=== PATIENT | female | born 1985 | race Asian ===

== ENCOUNTER → 2016-11-30 | Emergency (ER) | payer OTHER ==
[~2016-11-30] MED LIST: ACETAMINOPHEN 325 MG TABLET (FP) ONE; ACETAMINOPHEN 325 MG TABLET (FP) PO ONE
--- NOTE | 2016-11-30 19:48 | PDOC ---
History of Present Illness - General Chief Complaint: Vaginal Bleeding Stated Complaint: 6WKS/VAGINAL BLEEDING (EMPLOYEE) History Source: Patient - History of Present Illness Travel History: No Initial Comments: 11/30/167hrs: Blood work surekha and sent to lab by me 1954hrs. 2034hrs: Orders states blood work is "uncollected", called lab at [id number]/ spoke to Ethel says blood work is in the bin and will be logged now. 11/30/16 22:44 LMP 10/16/2016 31-year-old female presents to the emergency department complaining of vaginal bleed 4 days. Pt says she had heavy vaginal bleed for 2 days which tapered off to spotting this afternoon. Pt denies any boyle, dizziness, lightheadedness, neck/ back pain, cp, sob, urinary freq/hesitancy,urgency, flank pain. Pt was seen at her OB/DR. Jessica Taylor x3d ago and was informed of a possibel missed AB. Past History - Past Medical History Allergies/Adverse Reactions: Allergies Allergy/AdvReac Type Severity Reaction Status Date / Time No Known Allergies Allergy Verified 11/30/16 19:47 Home Medications: Ambulatory Orders Nitrofurantoin Monohyd/M-Cryst [Macrobid -] 100 mg PO BID #14 capsule 11/28/15 Phenazopyridine HCl [Pyridium] 200 mg PO TID #6 tablet 11/28/15 - Psycho/Social/Smoking Cessation Hx Suicidal Ideation: No Smoking History: Never smoked Have you smoked in the past 12 months: No Number of Cigarettes Smoked Daily: 0 Hx Alcohol Use: No Drug/Substance Use Hx: No Abd/GI Specific PMHX - Complaint Specific PMHX Colitis: No Diverticulitis: No Gall Bladder Disease: No GERD: No Hepatitis: No Irritable Bowel Synd (IBS): No Pancreatitis: No GI Ulcer Disease: No Review of Systems - Review of Systems Able to Perform ROS?: Yes Comments:: 11/30/16 20:37 CONSTITUTIONAL: Absent: fever, chills, diaphoresis, generalized weakness, malaise, loss of appetite HEENT: Absent: rhinorrhea, nasal congestion, throat pain, throat swelling, difficulty swallowing, mouth swelling, ear pain, eye pain, visual Changes CARDIOVASCULAR: Absent: chest pain, loss of consciousness, palpitations, irregular heart rate, peripheral edema RESPIRATORY: Absent: cough, shortness of breath, dyspnea with exertion, orthopnea, wheezing, stridor, hemoptysis GASTROINTESTINAL: Absent: abdominal pain, abdominal distension, nausea, vomiting, diarrhea, constipation, melena, hematochezia GENITOURINARY: Absent: dysuria, frequency, urgency, hesitancy, hematuria, flank pain, genital pain MUSCULOSKELETAL: Absent: myalgia, arthralgia, joint swelling SKIN: Absent: rash, itching, pallor HEMATOLOGIC/IMMUNOLOGIC: Absent: easy bleeding, easy bruising, lymphadenopathy, frequent infections ENDOCRINE: Absent: unexplained weight gain, unexplained weight loss, heat intolerance, cold intolerance NEUROLOGIC: Absent: headache, focal weakness or paresthesias, dizziness, unsteady gait, seizure, mental status changes, bladder or bowel incontinence PSYCHIATRIC: Absent: anxiety, depression, suicidal or homicidal ideation, hallucinations. Is the patient limited Albanian proficient: No *Physical Exam - Physical Exam Comments: 11/30/16 20:37 GENERAL: Well developed, well nourished. Awake and alert. No acute distress. HEENT: Normocephalic, atraumatic. PERRLA, EOMI. No conjunctival pallor. Sclera are non- icteric. Moist mucous membranes. Oropharynx is clear. NECK: Supple. Full ROM. No JVD. Carotid pulses 2+ and symmetric, without bruits. No thyromegaly. No lymphadenopathy. CARDIOVASCULAR: Regular rate and rhythm. No murmurs, rubs, or gallops. Distal pulses are 2+ and symmetric. PULMONARY: No evidence of respiratory distress. Lungs clear to auscultation bilaterally. No wheezing, rales or rhonchi. ABDOMINAL: Soft. Non-tender. Non-distended. No rebound or guarding. No organomegaly. Normoactive bowel sounds. MUSCULOSKELETAL Normal range of motion at all joints. No bony deformities or tenderness. No CVA tenderness. EXTREMITIES: No cyanosis. No clubbing. No edema. No calf tenderness. SKIN: Warm and dry. Normal capillary refill. No rashes. No jaundice. NEUROLOGICAL: Alert, awake, appropriate. Cranial nerves 2-12 intact. No deficits to light touch and temperature in face, upper extremities and lower extremities. No motor deficits in the in face, upper extremities and lower extremities. Normoreflexic in the upper and lower extremities. Normal speech. Toes are down- going bilaterally. Gait is normal without ataxia. PSYCHIATRIC: Cooperative. Good eye contact. Appropriate mood and affect. ED Treatment Course - LABORATORY CBC & Chemistry Diagram: 11/30/16 19:55 11/30/16 19:55 *DC/Admit/Observation/Transfer Diagnosis at time of Disposition: Missed - Discharge Dispostion Disposition: HOME Condition at time of disposition: Stable Admit: No - Referrals Referrals: Bing Hopson MD [Primary Care Provider] - Zenaida Swanson MD [Staff Physician] - - Patient Instructions Printed Discharge Instructions: Miscarriage Additional Instructions: Increase fluids Rest Pelvic rest Follow up with your cellophane wrapping examiner this week. Return to the Er for severe/persistent/worsening symptoms - Post Discharge Activity Work/School Note: Back to Work
[2016-11-30 19:50] VITALS: BMI 29.2
--- NOTE | 2016-11-30 20:29 | PDOC ---
*Physical Exam - Vital Signs Last Vital Signs Temp Pulse Resp BP Pulse Ox 98.6 F 84 18 117/69 99 11/30/16 19:48 11/30/16 19:48 11/30/16 19:48 11/30/16 19:48 11/30/16 19:48 ED Treatment Course - LABORATORY CBC & Chemistry Diagram: 11/30/16 19:55 11/30/16 19:55 Medical Decision Making - Medical Decision Making 11/30/16 20:29 Pt seen by the Advanced Practice Provider under my direct supervision Ancillary studies reviewed I agree with plan as outlined by the Advanced Practice Provider CHELSEY Chavez *DC/Admit/Observation/Transfer Diagnosis at time of Disposition: Missed - Discharge Dispostion Disposition: HOME Condition at time of disposition: Stable - Referrals Referrals: Zenaida Swanson MD [Staff Physician] - Bing Hopson MD [Primary Care Provider] - - Patient Instructions Printed Discharge Instructions: Miscarriage Additional Instructions: Increase fluids Rest Pelvic rest Follow up with your rn lpn cna this week. Return to the Er for severe/persistent/worsening symptoms - Post Discharge Activity Work/School Note: Back to Work
[2016-11-30 20:50] LABS: EOSINOPHIL 1.5 % (0-4.5); MCH 28.4 pg (25.7-33.7); MCHC 33.2 g/dl (32.0-36.0); MEAN CELL VOLUME 85.7 fl (80-96); MEAN PLT VOLUME 8.1 fl (7.5-11.1); NEUTROPHILS 56.4 % (42.8-82.8); PLATELET COUNT 341 K/MM3 (134-434); RDW 13.6 % (11.6-15.6); WHITE BLOOD COUNT 10.5 K/mm3 (4.0-10.0)
[2016-11-30 20:59] LABS: URINE APPEARANCE SLCLOUDY; URINE BILIRUBIN NEGATIVE (NEGATIVE); URINE COLOR RED; URINE GLUCOSE (UA) NEGATIVE (NEGATIVE); URINE KETONE NEGATIVE (NEGATIVE); URINE LEUK ESTERASE NEGATIVE (NEGATIVE); URINE NITRITE NEGATIVE (NEGATIVE); URINE UROBILINOGEN NEGATIVE E.U./dl (0.2-1.0)
[2016-11-30 21:02] LABS: URINE BLOOD 3+ (NEGATIVE); URINE PROTEIN 2+ (NEGATIVE)
[2016-11-30 21:12] LABS: URINE RBC 6088 /hpf (0-3); URINE WBC 160 /hpf (3-5)
[2016-11-30 21:18] LABS: ALBUMIN 4.1 g/dl (3.4-5.0); ANION GAP 8 (8-16); BILIRUBIN,TOTAL 0.2 mg/dL (0.2-1.0); CO2 25 mmol/L (21-32); COCKROFT - GAULT 81.7275; CREATININE 1.2 mg/dL (0.55-1.02); GLUCOSE,RANDOM 88 mg/dL (74-106); SGOT/AST 14 U/L (15-37); SGPT/ALT 22 U/L (12-78); TOT PROT 7.8 g/dl (6.4-8.2)
[2016-11-30 21:21] LABS: ALK PHOS 57 U/L (45-117)
[2016-11-30 23:09] VITALS: BP 128/92; PULSE 74; TEMP 98
== END | disposition home or self-care (01) ==
LOC: JER 19:42
DX: O02.1 Missed abortion (principal); Z3A.01 Less than 8 weeks gestation of pregnancy
CPT/HCPCS: 36415; 76817-TC; 80053; 81003; 81015; 84702; 85025; 86850; 86900; 86901; 99282-25

== ENCOUNTER 2017-04-22 21:39 | Emergency (ER) | payer OTHER ==
[2017-04-22 21:51] VITALS: BP 110/83; PULSE 114; BMI 30.9
[2017-04-22] MEDS ORDERED: IBUPROFEN 600 MG TABLET (FP) PO ONE ×2 (22:26→22:40)
--- NOTE | 2017-04-22 23:34 | PDOC ---
History of Present Illness <No Hernandez - Last Filed: 04/22/17 23:35> - General History Source: Patient Exam Limitations: No Limitations - History of Present Illness Initial Comments: 04/22/17 23:43 The patient is a 31 year old female presenting with her , with no significant past medical history, who presents to the emergency department with fever, chills, cough, nasal congestion, body aches and headache for the last couple of days. She states that the last time she took Motrin was at 5pm today, roughly 5 hours prior to presentation. She describes her cough as dry in nature. She reports that she has not received the flu shot this year. The patient currently works in the hospital. The patient denies chest pain, shortness of breath, and dizziness. Denies nausea , vomit, diarrhea and constipation. Denies dysuria, frequency, urgency and hematuria. LMP: 03/24/2017 Allergies: None Past surgical history: None reported Social history: No alcohol, tobacco or drug use reported <Jorge Carrizales - Last Filed: 04/22/17 23:45> - General Chief Complaint: SIRS, Suspected/Possible Stated Complaint: PAIN Time Seen by Provider: 04/22/17 22:18 Past History - Suicide/Smoking/Psychosocial Hx Smoking History: Never smoked Have you smoked in the past 12 months: No Number of Cigarettes Smoked Daily: 0 Information on smoking cessation initiated: No Hx Alcohol Use: No Drug/Substance Use Hx: No Substance Use Type: None <No Hernandez - Last Filed: 04/22/17 23:35> <Jorge Carrizales - Last Filed: 04/22/17 23:45> - Past Medical History Allergies/Adverse Reactions: Allergies Allergy/AdvReac Type Severity Reaction Status Date / Time No Known Allergies Allergy Verified 11/30/16 19:47 Home Medications: Ambulatory Orders NK [No Known Home Medication] 11/30/16 Review of Systems - Review of Systems Able to Perform ROS?: Yes Comments:: 04/22/17 23:43 GENERAL/CONSTITUTIONAL: (+) Fever, chills, body aches. No weakness. HEAD, EYES, EARS, NOSE AND THROAT: (+) Nasal congestion. No change in vision. No ear pain or discharge. No sore throat.- CARDIOVASCULAR: No chest pain or shortness of breath RESPIRATORY: (+) Cough. No wheezing, or hemoptysis. GASTROINTESTINAL: No nausea, vomiting, diarrhea or constipation. GENITOURINARY: No dysuria, frequency, or change in urination. MUSCULOSKELETAL: No joint or muscle swelling or pain. No neck or back pain. SKIN: No rash NEUROLOGIC: (+) Headache. No vertigo, loss of consciousness, or change in strength/sensation. ENDOCRINE: No increased thirst. No abnormal weight change HEMATOLOGIC/LYMPHATIC: No anemia, easy bleeding, or history of blood clots. ALLERGIC/IMMUNOLOGIC: No hives or skin allergy. <Jorge Carrizales - Last Filed: 04/22/17 23:45> *Physical Exam - Vital Signs Last Vital Signs Temp Pulse Resp BP Pulse Ox 102.2 F H 114 H 20 110/83 97 04/22/17 21:41 04/22/17 21:41 04/22/17 21:41 04/22/17 21:41 04/22/17 21:41 <No Hernandez - Last Filed: 04/22/17 23:35> - Vital Signs Last Vital Signs Temp Pulse Resp BP Pulse Ox 102.2 F H 114 H 20 110/83 97 04/22/17 21:41 04/22/17 21:41 04/22/17 21:41 04/22/17 21:41 04/22/17 21:41 - Physical Exam Comments: 04/22/17 23:43 GENERAL: Awake, alert, and fully oriented, in no acute distress HEAD: No signs of trauma, normocephalic, atraumatic EYES: PERRLA, EOMI, sclera anicteric, conjunctiva clear ENT: Auricles normal inspection, hearing grossly normal, nares patent, oropharynx clear without exudates. Moist mucosa NECK: Normal ROM, supple, no lymphadenopathy, JVD, or masses LUNGS: No distress, speaks full sentences, clear to auscultation bilaterally HEART: (+) Tachycardia. Normal S1 and S2, no murmurs, rubs or gallops, peripheral pulses normal and equal bilaterally. ABDOMEN: Soft, nontender, normoactive bowel sounds. No guarding, no rebound. No masses EXTREMITIES : Normal inspection, Normal range of motion, no edema. No clubbing or cyanosis. NEUROLOGICAL: Cranial nerves II through XII grossly intact. Normal speech, normal gait, no focal sensorimotor deficits SKIN: Warm, Dry, normal turgor, no rashes or lesions noted. <Jorge Carrizales - Last Filed: 04/22/17 23:45> ED Treatment Course - ADDITIONAL ORDERS Additional order review: 04/22/17 22:30 Influenza Types A,B Antigen (MARKOS) - Final Nasopharyngeal Swab - Final - Medications Given in the ED: ED Medications Discontinued Medications Generic Name Dose Route Start Last Admin Trade Name Freq PRN Reason Stop Dose Admin Ibuprofen 600 mg 04/22/17 22:26 04/22/17 22:43 Motrin - PO 04/22/17 22:27 600 mg ONCE ONE Administration <No Hernandez - Last Filed: 04/22/17 23:35> - ADDITIONAL ORDERS Additional order review: 04/22/17 22:30 Influenza Types A,B Antigen (MARKOS) - Final Nasopharyngeal Swab - Final - Medications Given in the ED: ED Medications Discontinued Medications Generic Name Dose Route Start Last Admin Trade Name Freq PRN Reason Stop Dose Admin Ibuprofen 600 mg 04/22/17 22:26 04/22/17 22:43 Motrin - PO 04/22/17 22:27 600 mg ONCE ONE Administration <Jorge Carrizales - Last Filed: 04/22/17 23:45> *DC/Admit/Observation/Transfer <No Hernandez - Last Filed: 04/22/17 23:35> - Attestations Scribe Attestion: 04/22/17 23:45 Documentation prepared by Jorge Carrizales, acting as biomedical equipment specialist for No Hernandez MD <Jorge Carrizales - Last Filed: 04/22/17 23:45> Diagnosis at time of Disposition: Cough, Body aches Fever Qualifiers: Fever type: unspecified Qualified Code(s): R50.9 - Fever, unspecified - Discharge Dispostion Condition at time of disposition: Stable - Referrals Referrals: Bing Hopson MD [Primary Care Provider] - - Patient Instructions Printed Discharge Instructions: DI for Fever (Symptom) -- Adult, DI for Viral Syndrome, DI for Nasal Congestion Additional Instructions: -please take tylenol as needed for fever ,headache and body aches -try to stay hydrated,drink plenty of fluid -You may want to use OTC nasal decongestant -return if you develop any difficulty breathing, neck pain or headaches associated with vomiting
[2017-04-22 23:46] VITALS: TEMP 100.6
== END 2017-04-22 23:47 | disposition home or self-care (01) ==
LOC: JER 21:39
DX: B34.9 Viral infection, unspecified (principal)
CPT/HCPCS: 87804; 99283-25

== ENCOUNTER 2017-10-10 05:13 | Day surgery (SDC) | payer OTHER ==
[2017-10-09 09:03] VITALS: BMI 28.7
[2017-10-10] MEDS ORDERED: ACETAMINOPHEN 325 MG TABLET (FP) PO PRN (06:53)
[2017-10-10] MEDS ORDERED: IBUPROFEN 400 MG TABLET (FP) PO PRN (06:53)
--- NOTE | 2017-10-10 06:53 | HP ---
History & Physical Update - History History: No Change - Physical Physical: No Change - Assessment Assessment: No Change - Plan Plan: No Change (no change in my HP from 10/09/17)
[2017-10-10] MEDS ORDERED: PROPOFOL 20 ML ONE ×2 (12:05→12:21)
[2017-10-10] MEDS ORDERED: SUCCINYLCHOLINE CHLORIDE 200 MG/10 ML VIAL ONE (12:05)
[2017-10-10] MEDS ORDERED: MIDAZOLAM HCL 2 MG/2 ML SINGLE DOSE VIAL ONE (12:06)
[2017-10-10] MEDS ORDERED: DEXAMETHASONE SOD PHOSPHATE 4 MG/1 ML VIAL ONE (12:21)
[2017-10-10] MEDS ORDERED: KETOROLAC TROMETHAMINE 30 MG/1 ML VIAL ONE (12:21)
[2017-10-10] MEDS ORDERED: LIDOCAINE HCL/PF 2% SDV 5ML VIAL ONE (12:21)
[2017-10-10] MEDS ORDERED: SODIUM CHLORIDE 0.9% P/F 10 ML VIAL IJ ONE (12:24)
[2017-10-10] MEDS ORDERED: ceFAZolin SODIUM 1 GM VIAL ONE (12:24)
[2017-10-10] MEDS ORDERED: ONDANSETRON 4 MG/2 ML VIAL IVPUSH PRN (13:18)
[2017-10-10] MEDS ORDERED: oxyCODONE HCL 5 MG TABLET PO PRN ×2 (13:18)
--- NOTE | 2017-10-10 13:21 | OP ---
DATE OF OPERATION: 10/10/2017 PREOPERATIVE DIAGNOSIS: Endometrial polyps, submucosal myoma. OPERATION: Hysteroscopic myomectomy and dilation and curettage. POSTOPERATIVE DIAGNOSIS: Endometrial polyps, submucosal myoma. SURGEON: Zenaida Swanson MD ANESTHESIA: General. FINDINGS: Endometrial polyps and submucosal myomas seen and intramural myoma. DESCRIPTION OF PROCEDURE: The patient was taken to the operating room and placed in dorsal lithotomy position, prepped and draped in the usual sterile fashion. A time-out was performed in accordance with hospital regulation. Speculum was placed in the vagina. Anterior lip of the cervix was grasped with a single-tooth tenaculum. The cervix was then dilated to accommodate the operative hysteroscope. Operative hysteroscope was inserted, and numerous polyps and submucosal myomas seen. Cautery and cutting of the polyps and myoma was then done. Suction dilation and curettage was then performed. Contents was submitted to Pathology. Hemostasis was achieved. All instruments were removed. The patient tolerated the procedure well and was taken to the recovery room in stable condition. EBL 20 mL. ZENAIDA SWANSON M.D. [id number]
[2017-10-10] MEDS ORDERED: LACTATED RINGERS SOLUTION 1,000 ML IV SCH (13:30)
[2017-10-10] MEDS ORDERED: ONDANSETRON 4 MG/2 ML VIAL ONE (15:02)
[2017-10-10 17:34] VITALS: BP 113/68; PULSE 90; TEMP 98
--- NOTE | 2017-10-15 17:33 | PATH ---
Surgical Pathology Report Patient Name: JOHNNY MUNGUIA [facility]. Rec. #: [id number] /Age/Gender: 1985 (Age: 32) / F Account: [id number] Location: [facility] SURGICAL Taken: 10/09/2017 Received: 10/14/2017 Reported: 10/15/2017 Physicians: Zenaida Swanson M.D. Specimen(s) Received SUBMUCOSAL FIBROID Clinical History Submucosal myoma/polyp Final Diagnosis SUBMUCOSAL FIBROID, HYSTEROSCOPY, MYOMECTOMY, SUCTION AND DILATION CURETTAGE: FRAGMENTS OF SMOOTH MUSCLE CONSISTENT WITH SUBMUCOSAL LEIOMYOMA AND POLYPOID FRAGMENTS OF EARLY SECRETORY ENDOMETRIUM. Electronically Signed Jayde Bangura M.D. Gross Description Received in formalin labeled "submucosal fibroid," is a 4 g, 3.8 x 2.5 x 0.4 cm aggregate of price soft tissue fragments. The formalin is filtered and the specimen is entirely submitted in 3 cassettes. /10/14/2017 saudi10/14/2017
== END 2017-10-10 17:15 | disposition home or self-care (01) ==
LOC: JASU-SURG 05:13
PROVIDERS: ATTEND Obstetrics & Gynecology
PROC: 0UB98ZZ Excision of Uterus, Via Natural or Artificial Opening Endoscopic (ICD-10-PCS; principal; 2017-10-10 11:30)
PROC: 0UDB8ZX Extraction of Endometrium, Via Natural or Artificial Opening Endoscopic, Diagnostic (ICD-10-PCS; 2017-10-10 11:30)
DX: D25.0 Submucous leiomyoma of uterus (principal); N84.0 Polyp of corpus uteri
CPT/HCPCS: 88305-TC; 94760

== ENCOUNTER 2018-01-02 23:09 | Emergency (ER) | payer OTHER ==
[2018-01-02 23:12] VITALS: BP 129/72; PULSE 84; TEMP 97.8; BMI 30.9
--- NOTE | 2018-01-02 23:49 | PDOC ---
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 She was stuck with an insulin needle after injecting her patient with insulin. She washed her hands with soap and water immediately afterwards, and her pain to the area is very mild. Serology is pending for the source patient, and OILER BANDER No Choi is in the process of getting HIV testing consent from the source patient. She denies any personal h/o HIV or hepatitis or any additional chronic illness. She has never had similar work exposures. She has otherwise been feeling very well lately and denies any symptoms of illness. She expresses that she prefers to take whatever post-exposure prophylaxis is available and is willing to handle the side effects. <Amarilis Rizo - Last Filed: 01/03/18 02:04> <Jorge Galeana - Last Filed: 01/03/18 05:13> - General Chief Complaint: Blood/Body Fluid Exposure SJR Stated Complaint: STUCK BY NEEDLE Time Seen by Provider: 01/02/18 23:25 Past History - Past Medical History COPD: No Hypercholesterolemia: Yes (no med) - Suicide/Smoking/Psychosocial Hx Smoking History: Never smoked Have you smoked in the past 12 months: No Number of Cigarettes Smoked Daily: 0 Hx Alcohol Use: Yes (wine rarely) Drug/Substance Use Hx: No Substance Use Type: None <Amarilis Rizo - Last Filed: 01/03/18 02:04> <Jorge Galeana - Last Filed: 01/03/18 05:13> - Past Medical History Allergies/Adverse Reactions: Allergies Allergy/AdvReac Type Severity Reaction Status Date / Time No Known Allergies Allergy Verified 01/02/18 23:12 Home Medications: Ambulatory Orders NK [No Known Home Medication] 11/30/16 General Medical PMHX - Other General PMHX GERD: No GI Ulcer Disease: No <Amarilis Rizo - Last Filed: 01/03/18 02:04> Review of Systems - Review of Systems Able to Perform ROS?: Yes Constitutional: No: Chills, Fever, Unexplained wgt Loss HEENTM: No: Nose Congestion, Throat Pain Respiratory: No: Cough, Shortness of Breath Cardiac (ROS): No: Chest Pain, Palpitations ABD/GI: No: Constipated, Diarrhea, Nausea, Vomiting : No: Burning, Dysuria Musculoskeletal: No: Back Pain, Neck Pain Integumentary: No: Bruising, Rash Neurological: No: Headache, Numbness, Tingling, Weakness, Dizziness Endocrine: No: Unexplained Weight Gain, Unexplained Weight Loss <Amarilis Rizo - Last Filed: 01/03/18 02:04> *Physical Exam - Vital Signs Last Vital Signs Temp Pulse Resp BP Pulse Ox 97.8 F 84 18 129/72 99 01/02/18 23:10 01/02/18 23:10 01/02/18 23:10 01/02/18 23:10 01/02/18 23:10 - Physical Exam General Appearance: Yes: Nourished, Appropriately Dressed, Other (alert, oriented, well appearing, nontoxic, answering questions appropriately). No: Apparent Distress HEENT: positive: EOMI, Normal Voice, Hearing Grossly Normal. negative: Scleral Icterus (R), Scleral Icterus (L), Nasal Congestion Neck: positive: Trachea midline, Supple. negative: Tender, Rigid Respiratory/Chest: positive: Lungs Clear, Normal Breath Sounds. negative: Respiratory Distress, Crackles, Rhonchi, Stridor, Wheezing Cardiovascular: positive: Regular Rhythm, Regular Rate. negative: Murmur Gastrointestinal/Abdominal: positive: Normal Bowel Sounds, Soft. negative: Tender, Organomegaly, Pulsatile Mass, Guarding Musculoskeletal: positive: Normal Inspection. negative: Decreased Range of Motion, Vertebral Tenderness Extremity: positive: Normal Capillary Refill, Normal Inspection, Normal Range of Motion. negative: Tender, Cyanosis Integumentary: positive: Normal Color, Dry, Warm. negative: Erythema, Rash, Bruising Neurologic: positive: volunteer services director II-XII NML intact, Fully Oriented, Alert, Normal Mood/ Affect, Normal Response, Motor Strength 5/5 <Amarilis Rizo - Last Filed: 01/03/18 02:04> - Vital Signs Last Vital Signs Temp Pulse Resp BP Pulse Ox 97.8 F 84 18 129/72 99 01/02/18 23:10 01/02/18 23:10 01/02/18 23:10 01/02/18 23:10 01/02/18 23:10 <Jorge Galeana - Last Filed: 01/03/18 05:13> Post Exposure - ED Protocol - Exposure Treatment Washing/Decontamination: Soap/Water Source Patient HIV Status:: Unknown Is PEP indicated?: Yes Prophylaxis for HIV discussed?: Yes Prophylaxis given?: Yes Prophylaxis refused?: No Treatment Given:: Truvada (Tenof+Emtricita), Isentress (Raltegravir) Baseline bloods drawn prophylaxis:(use *Exposure-Hosp Emp): Yes Additional Treatment:: HBIG - Referrals Employee Referred to Employee Health:: Yes City Worker referred to Infection Control Dept.: No Other Post Exposure pt. referral to PCP: No <DarriusAmarilis - Last Filed: 01/03/18 02:04> Medical Decision Making - Medical Decision Making 01/03/18 02:20 Needle stick injury technically a high-risk for exposure according to CDC. <DarriusAmarilis - Last Filed: 01/03/18 02:04> *DC/Admit/Observation/Transfer - Discharge Dispostion Decision to Admit order: No <DarriusAmarilis - Last Filed: 01/03/18 02:04> <Jorge Galeana - Last Filed: 01/03/18 05:13> Diagnosis at time of Disposition: Need for post exposure prophylaxis for hepatitis B, Needle stick injury, Work related injury - Discharge Dispostion Condition at time of disposition: Stable - Referrals Referrals: Bing Hopson MD [Primary Care Provider] - - Patient Instructions Printed Discharge Instructions: How to Handle Body Fluid Exposure -- Healthcare Worker Additional Instructions: You were seen in the ER for a needle stick injury at work and for post-exposure prophylaxis and testing. We surekha your blood to check you for HIV and hepatitis, and we gave you doses of post-exposure prophylaxis medications here in the department. We are sending After our assessment, we do not believe you are having a medical emergency at this time, and we believe you are safe to go home. Please follow up Occupational Medicine and with your regular PCP doctor in 1-3 days. Call their clinic as soon as possible, tell them you were seen in the ER, and tell them you need an appointment. If you have any new or worsening symptoms, please come back to the ER at any time (24 hours a day). If you are having severe or life threatening symptoms, or symptoms that make it unsafe to drive or have someone drive you, please call 911. - Post Discharge Activity Forms/Work/School Notes: Back to Work
--- NOTE | 2018-01-02 23:50 | PDOC ---
Attending Attestation - HPI HPI: 01/03/18 00:13 The patient is a 32 year old female, with a significant PMH of hypothyroidism, hyperlipidemia, uterine polyps s/p myomectomy, who presents to the emergency department for evaluation s/p needlestick injury here at [facility] at 10:45 pm. 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 The patient reports washing her finger immediately s/p needle stick injury with soap and water. The patient denies any history of HIV, hepatitis, or other previous work exposures. The patient denies chest pain, shortness of breath, headache and dizziness. Denies fever, chills, nausea, vomit, diarrhea and constipation. Denies dysuria, frequency, urgency and hematuria. Allergies: NKA - Physicial Exam PE: 01/03/18 00:14 GENERAL: (+) Anxious appearing. Well-appearing, well-nourished. HEENT: Normocephalic, atraumatic. PERRL, EOM intact. CARDIOVASCULAR: Normal S1, S2. Regular rate and rhythm. PULMONARY: Clear to auscultation bilaterally. ABDOMEN: Soft, non-distended, non-tender. EXTREMITIES: (+) Left index finger on radial side has small puncture wound. Full ROM. No tenderness to palpation. Normal ROM in all four extremities. No gross deformities. SKIN: Warm, dry. No rash NEUROLOGICAL: No focal neurological deficits. <Moises Morillo - Last Filed: 01/03/18 00:13> - Resident Resident Name: Amarilis Rizo - ED Attending Attestation I have performed the following: I have examined & evaluated the patient, The case was reviewed & discussed with the resident, I agree w/resident's findings & plan, Exceptions are as noted - Medical Decision Making 01/06/18 20:04 Pt treated and released. <Jorge Galeana - Last Filed: 01/06/18 20:04> Attestations - Attestations 01/03/18 00:16 Documentation prepared by Moises Morillo, acting as medical imaging tech for Jorge Galeana DO. <Moises Morillo - Last Filed: 01/03/18 00:13>
[2018-01-02] MEDS ORDERED: EMTRICITABINE 200MG/TENOFOVIR 300MG PO ONE (23:54)
[2018-01-02] MEDS ORDERED: HEPATITIS B IMMUNE GLOBULIN 5 ML VIAL IM ONE (23:54)
[2018-01-02] MEDS ORDERED: RALTEGRAVIR POTASSIUM 400 MG TAB PO ONE (23:54)
[2018-01-03 00:44] LABS: BASO % 1.3 % (0-2.0); EOS % 0.7 % (0-4.5); HEMOGLOBIN 12.2 GM/dL (10.7-15.3); LYMPH % 32.6 % (8-40); MCH 28.7 pg (25.7-33.7); MCHC 33.1 g/dl (32.0-36.0); MEAN CELL VOLUME 86.8 fl (80-96); MEAN PLT VOLUME 7.8 fl (7.5-11.1); NEUT % 62.4 % (42.8-82.8); PLATELET COUNT 357 K/MM3 (134-434); RBC 4.26 M/mm3 (3.60-5.2); RDW 13.8 % (11.6-15.6); WHITE BLOOD COUNT 8.6 K/mm3 (4.0-10.0)
[2018-01-03 01:05] LABS: ALBUMIN 4.2 g/dl (3.4-5.0); ANION GAP 7 (8-16); BILIRUBIN,TOTAL 0.2 mg/dL (0.2-1.0); BLOOD UREA NITROGEN 11 mg/dL (7-18); CALCIUM 9.2 mg/dL (8.5-10.1); CHLORIDE 105 mmol/L (98-107); CHOLESTEROL 233 mg/dL (50-200); CO2 25 mmol/L (21-32); CREATININE 0.7 mg/dL (0.55-1.02); GAMMA GLUTAMYL TRANSPEPTIDASE 16 U/L (5-85); GLUCOSE,RANDOM 99 mg/dL (74-106); LDH 167 U/L (84-246); PHOSPHOROUS 3.8 mg/dL (2.5-4.9); POTASSIUM 4.2 mmol/L (3.5-5.1); SGOT/AST 14 U/L (15-37); SGPT/ALT 28 U/L (12-78); SODIUM 137 mmol/L (136-145); TOT PROT 8.4 g/dl (6.4-8.2); URIC ACID 4.7 mg/dL (2.6-7.2)
[2018-01-03 01:07] LABS: ALK PHOS 47 U/L (45-117); TRIGLYCERIDES 199 mg/dL (35-160)
[2018-01-03] MEDS ORDERED: HIV POST EXPOSURE PROPHYLAXIS KIT PO ONE (05:16)
[2018-01-04 06:11] LABS: HBsAG SCREEN Negative (Negative); HEPATITIS B CORE ANTIBODY Negative (Negative)
== END 2018-01-03 05:17 | disposition home or self-care (01) ==
LOC: JER 23:09
DX: S61.231A Puncture wound without foreign body of left index finger without damage to nail, initial encounter (principal); W46.1XXA Contact with contaminated hypodermic needle, initial encounter; Y93.F9 Activity, other caregiving; Y92.238 Other place in hospital as the place of occurrence of the external cause; Y99.0 Civilian activity done for income or pay
CPT/HCPCS: 36415; 80053; 82465; 82977; 83615; 84100; 84478; 84550; 84703; 85025; 86704; 87340; 87389; 99281-25

== ENCOUNTER 2018-07-20 03:02 | Emergency (ER) | payer OTHER ==
--- NOTE | 2018-07-20 03:14 | PDOC ---
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 She stuck her L thenar eminence. No active bleeding at this time. Pt was able to wash out the wound with soap and water. Does not remember last tetanus shot. Source pt currently in the ED and will given HIV/.hep samples. Past History - Travel Traveled outside of the country in the last 30 days: No Close contact w/someone who was outside of country & ill: No - Past Medical History Allergies/Adverse Reactions: Allergies Allergy/AdvReac Type Severity Reaction Status Date / Time No Known Allergies Allergy Verified 07/20/18 03:16 Home Medications: Ambulatory Orders NK [No Known Home Medication] 11/30/16 COPD: No Hypercholesterolemia: Yes (no med) - Suicide/Smoking/Psychosocial Hx Smoking History: Never smoked Have you smoked in the past 12 months: No Number of Cigarettes Smoked Daily: 0 Hx Alcohol Use: Yes (wine rarely) Drug/Substance Use Hx: No Substance Use Type: None Review of Systems - Review of Systems Able to Perform ROS?: Yes Comments:: 07/20/18 06:04 CONSTITUTIONAL: Absent: fever, chills, diaphoresis, generalized weakness, malaise, loss of appetite HEENT: Absent: rhinorrhea, nasal congestion, throat pain, throat swelling, difficulty swallowing, mouth swelling, ear pain, eye pain, visual Changes SKIN: Absent: rash, itching, pallor HEMATOLOGIC/IMMUNOLOGIC: Present: needle stick Absent: easy bleeding, easy bruising, lymphadenopathy, frequent infections ENDOCRINE: Absent: unexplained weight gain, unexplained weight loss, heat intolerance, cold intolerance NEUROLOGIC: Absent: headache, focal weakness or paresthesias, dizziness, unsteady gait, seizure, mental status changes, bladder or bowel incontinence PSYCHIATRIC: Absent: anxiety, depression, suicidal or homicidal ideation, hallucinations. Is the patient limited [place] proficient: No *Physical Exam - Physical Exam Comments: 07/20/18 06:04 GENERAL: The patient is awake, alert, and fully oriented, in no acute distress. HEAD: Normal with no signs of trauma. EYES: Pupils equal, round and reactive to light, extraocular movements intact, sclera anicteric, conjunctiva clear. EXTREMITIES: Normal range of motion, no edema. NEUROLOGICAL: Normal speech, normal gait. PSYCH: Normal mood, normal affect. SKIN: No needle efe present on the L thenar eminence. No active bleeding. Warm , Dry, normal turgor, no rashes or lesions noted. 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 -Pt washed L palm where stick occurred. No bleeding present at this time -Pt to follow up with employee [facility] -[place] home -I discussed the physical exam findings, ancillary test results and final diagnoses with the patient. I answered all of the patient's questions. The patient was satisfied with the care received and felt comfortable with the discharge plan and treatment plan. The Patient agrees to follow up with the primary care physician/specialist within 24-72 hours. Return precautions were given. *DC/Admit/Observation/Transfer Diagnosis at time of Disposition: Needle stick injury, Work related injury - Discharge Dispostion Disposition: HOME Condition at time of disposition: Stable Decision to Admit order: No - Referrals - Patient Instructions Printed Discharge Instructions: How to Handle Body Fluid Exposure -- Healthcare Worker Additional Instructions: You had a needle stick today Your tetanus shot was updated Please follow up with [facility] for further work up 1. As discussed, a screening test for the HIV virus was performed today. Your HIV test is Negative (normal). 2. As discussed, if you engaged in high risk-behavior in the three (3) months prior to this test, you could still potentially be at risk and you will need to be re-tested. 3. As discussed, avoid any high risk behavior (such as unprotected sex or needle-sharing) in the future to minimize the chances of dixie HIV. Return to the ED for any new or worsening symptoms - Post Discharge Activity Forms/Work/School Notes: Back to Work
[2018-07-20] MEDS ORDERED: DIPHTH,PERTUSS(ACELL),TET 0.5 ML DISP.SYRIN IM ONE ×2 (03:16→03:36)
[2018-07-20 03:18] VITALS: BP 117/76; PULSE 82; TEMP 97.9; BMI 26.5
[2018-07-20 03:56] LABS: EOS % 2.3 % (0-4.5); HEMATOCRIT 35.3 % (32.4-45.2); HEMOGLOBIN 12.3 GM/dL (10.7-15.3); LYMPH % 43.5 % (8-40); MCH 29.5 pg (25.7-33.7); MCHC 34.9 g/dl (32.0-36.0); MEAN CELL VOLUME 84.5 fl (80-96); MEAN PLT VOLUME 7.7 fl (7.5-11.1); MONO % 4.4 % (3.8-10.2); NEUT % 48.8 % (42.8-82.8); PLATELET COUNT 350 K/MM3 (134-434); RBC 4.17 M/mm3 (3.60-5.2); RDW 13.2 % (11.6-15.6); WHITE BLOOD COUNT 7.6 K/mm3 (4.0-10.0)
[2018-07-20 04:17] LABS: ALK PHOS 51 U/L (45-117); ANION GAP 9 MMOL/L (8-16); BILIRUBIN,TOTAL 0.2 mg/dL (0.2-1); BLOOD UREA NITROGEN 10 mg/dL (7-18); CALCIUM 9.7 mg/dL (8.5-10.1); CHLORIDE 103 mmol/L (98-107); CHOLESTEROL 254 mg/dL (50-200); CO2 25 mmol/L (21-32); CREATININE 0.7 mg/dL (0.55-1.3); GLUCOSE,RANDOM 105 mg/dL (74-106); POTASSIUM 3.6 mmol/L (3.5-5.1); SGOT/AST 20 U/L (15-37); SGPT/ALT 47 U/L (13-61); SODIUM 137 mmol/L (136-145); TOT PROT 7.9 g/dl (6.4-8.2); TRIGLYCERIDES 203 mg/dL (0-150)
[2018-07-22 03:16] LABS: HBsAG SCREEN Negative (Negative)
== END 2018-07-20 06:11 | disposition home or self-care (01) ==
LOC: JER 03:02
PROC: 3E0234Z Introduction of Serum, Toxoid and Vaccine into Muscle, Percutaneous Approach (ICD-10-PCS; principal; 2018-07-20)
DX: Z77.21 Contact with and (suspected) exposure to potentially hazardous body fluids (principal); S61.432A Puncture wound without foreign body of left hand, initial encounter; W46.1XXA Contact with contaminated hypodermic needle, initial encounter; Y93.F9 Activity, other caregiving; Y92.230 Patient room in hospital as the place of occurrence of the external cause; Y99.0 Civilian activity done for income or pay
CPT/HCPCS: 36415; 80053; 82465; 84478; 85025; 86317; 86706; 86803; 87340; 87389; 90471; 90715; 99282-25

== ENCOUNTER 2018-11-27 22:26 | Emergency (ER) | payer OTHER ==
[2018-11-27 22:31] VITALS: BP 154/89; PULSE 90; TEMP 98; BMI 30.4
[2018-11-27] MEDS ORDERED: ONDANSETRON 4 MG/2 ML VIAL IVPUSH ONE (23:30)
[2018-11-27] MEDS ORDERED: SODIUM CHLORIDE 0.9% 1000 ML INFUS.BAG IV ONE (23:30)
[2018-11-27] MEDS ORDERED: ONDANSETRON 4 MG/2 ML VIAL ONE (23:39)
[2018-11-27 23:45] LABS: BASO % 1.4 % (0-2.0); EOS % 1.6 % (0-4.5); HEMOGLOBIN 12.4 GM/dL (10.7-15.3); LYMPH % 41.1 % (8-40); MCH 28.1 pg (25.7-33.7); MCHC 32.7 g/dl (32.0-36.0); MEAN PLT VOLUME 7.3 fl (7.5-11.1); MONO % 5.4 % (3.8-10.2); NEUT % 50.5 % (42.8-82.8); PH,URINE 7.5 (5.0-8.0); PLATELET COUNT 365 K/MM3 (134-434); RBC 4.42 M/mm3 (3.60-5.2); RDW 13.8 % (11.6-15.6); URINE APPEARANCE CLOUDY; URINE BILIRUBIN NEGATIVE (NEGATIVE); URINE COLOR YELLOW; URINE GLUCOSE (UA) NEGATIVE (NEGATIVE); URINE KETONE NEGATIVE (NEGATIVE); URINE LEUK ESTERASE NEGATIVE (NEGATIVE); URINE NITRITE NEGATIVE (NEGATIVE); URINE PROTEIN NEGATIVE (NEGATIVE); URINE UROBILINOGEN 0.2 mg/dL (0.2-1.0)
[2018-11-28 00:10] LABS: BILIRUBIN,TOTAL 0.2 mg/dL (0.2-1); CALCIUM 9.5 mg/dL (8.5-10.1); CREATININE 0.8 mg/dL (0.55-1.3); TOT PROT 7.9 g/dl (6.4-8.2)
--- NOTE | 2018-11-28 00:22 | PDOC ---
Documentation entered by Alvina Kendall SCRIBE, acting as scribe for Dixie Rangel DO. Dixie Rangel DO: This documentation has been prepared by the Faiza atwood Xhesika, SCRIBE, under my direction and personally reviewed by me in its entirety. I confirm that the documentation accurately reflects all work, treatment, procedures, and medical decision making performed by me. History of Present Illness - General Chief Complaint: Lightheaded Stated Complaint: DIZZINESS/NAUSEA (STAFF) Time Seen by Provider: 11/27/18 23:24 History Source: Patient Exam Limitations: No Limitations - History of Present Illness Initial Comments: 11/27/18 23:36 The patient is a 33 year old female, with no significant PMH of who presents to the emergency department with dizziness. The patient describes her dizziness as the room is spinning. 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 The patient states she endorsed chest palpitations 2 days ago that self resolved. The patient states her LMP was . The patient denies leg swelling, chest pain, SOB, sweating or dizziness. Denies fever, chills, vomit, diarrhea and constipation. Denies dysuria, frequency, urgency and hematuria. Allergies: NKA Past surgical history: Fibroid removal Past History - Past Medical History Allergies/Adverse Reactions: Allergies Allergy/AdvReac Type Severity Reaction Status Date / Time No Known Allergies Allergy Verified 11/27/18 22:31 Home Medications: Ambulatory Orders NK [No Known Home Medication] 11/30/16 COPD: No Hypercholesterolemia: Yes (no med) - Immunization History Immunization Up to Date: Yes - Suicide/Smoking/Psychosocial Hx Smoking History: Unknown if ever smoked Have you smoked in the past 12 months: No Number of Cigarettes Smoked Daily: 0 Information on smoking cessation initiated: No Hx Alcohol Use: No Drug/Substance Use Hx: No Substance Use Type: None Review of Systems - Review of Systems Able to Perform ROS?: Yes Comments:: 11/27/18 23:37 GENERAL/CONSTITUTIONAL: No fever or chills. No weakness. HEAD, EYES, EARS, NOSE AND THROAT: No change in vision. No ear pain or discharge. No sore throat. CARDIOVASCULAR: No chest pain or shortness of breath. RESPIRATORY: No cough, wheezing, or hemoptysis. GASTROINTESTINAL: (+)nausea. No vomiting, diarrhea or constipation. GENITOURINARY: No dysuria, frequency, or change in urination. MUSCULOSKELETAL: No joint or muscle swelling or pain. No neck or back pain. SKIN: No rash NEUROLOGIC: (+) Lightheadedness.(+) dizziness. No headache, vertigo, loss of consciousness, or change in strength/sensation. ENDOCRINE: No increased thirst. No abnormal weight change. HEMATOLOGIC/LYMPHATIC: No anemia, easy bleeding, or history of blood clots. ALLERGIC/IMMUNOLOGIC: No hives or skin allergy. All Other Systems: Reviewed and Negative *Physical Exam - Vital Signs Last Vital Signs Temp Pulse Resp BP Pulse Ox 98.0 F 90 16 154/89 100 11/27/18 22:29 11/27/18 22:29 11/27/18 22:29 11/27/18 22:29 11/27/18 22:29 - Physical Exam Comments: 11/27/18 23:38 GENERAL: Awake, alert, and fully oriented, in no acute distress HEAD: No signs of trauma EYES: PERRLA, EOMI, sclera anicteric, conjunctiva clear ENT: Auricles normal inspection, hearing grossly normal, nares patent, oropharynx clear without exudates. Moist mucosa NECK: Normal ROM, supple, no lymphadenopathy, JVD, or masses LUNGS: Breath sounds equal, clear to auscultation bilaterally. No wheezes, and no crackles HEART: Regular rate and rhythm, normal S1 and S2, no murmurs, rubs or gallops ABDOMEN: Soft, nontender, normoactive bowel sounds. No guarding, no rebound. No masses EXTREMITIES: Normal range of motion, no edema. No clubbing or cyanosis. No cords, erythema, or tenderness NEUROLOGICAL: Cranial nerves II through XII grossly intact. Normal speech, normal gait SKIN: Warm, Dry, normal turgor, no rashes or lesions noted. ED Treatment Course - LABORATORY CBC & Chemistry Diagram: 11/27/18 23:30 11/27/18 23:30 - ADDITIONAL ORDERS Additional order review: Laboratory Results 11/27/18 11/27/18 11/27/18 23:30 23:30 23:18 Sodium 140 Potassium 4.0 Chloride 108 H Carbon Dioxide 24 Anion Gap 8 BUN 14 Creatinine 0.8 Est GFR (CKD-EPI)AfAm 113.86 Est GFR (CKD-EPI)NonAf 98.24 Random Glucose 89 Calcium 9.5 Total Bilirubin 0.2 AST 16 ALT 48 Alkaline Phosphatase 51 Total Protein 7.9 Albumin 4.0 Urine Color Yellow Urine Appearance Cloudy Urine pH 7.5 D Ur Specific [place] 1.017 Urine Protein Negative Urine Glucose (UA) Negative Urine Ketones Negative Urine Blood Negative Urine Nitrite Negative Urine Bilirubin Negative Urine Urobilinogen 0.2 Ur Leukocyte Esterase Negative Urine HCG, Qual Negative 11/27/18 23:30 RBC 4.42 MCV 86.0 MCHC 32.7 RDW 13.8 MPV 7.3 L Neutrophils % 50.5 Lymphocytes % 41.1 H Monocytes % 5.4 Eosinophils % 1.6 Basophils % 1.4 - Medications Given in the ED: ED Medications Discontinued Medications Generic Name Dose Route Start Last Admin Trade Name Freq PRN Reason Stop Dose Admin Ondansetron HCl 4 mg 11/27/18 23:30 11/27/18 23:41 Zofran Injection IVPUSH 11/27/18 23:31 4 mg ONCE ONE Administration Sodium Chloride 1,000 ml 11/27/18 23:30 11/27/18 23:41 Normal Saline - IV 11/27/18 23:31 1,000 ml ONCE ONE Administration Medical Decision Making - Medical Decision Making 11/28/18 00:20 a/p: 33yo female with lightheaded feeling and nausea tonight -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, almost passed out and nausea -no vomiting or diarrhea -no cp/sob -no abd pain -no vaginal complaints -no urine complaints -no cough/fevers/chills -will send labs -hx of irreg menstrual cycles - will send upreg -urine is cloudy- will order ua -ivf hydration, zofran -monitor and reassess 11/28/18 00:21 re-eval: nausea improved ivf hdyration running upreg neg ua neg cbc stable 11/28/18 00:42 no electrolyte abnl normal renal function 11/28/18 01:05 vss, pt drinking juice no longer nauseated *DC/Admit/Observation/Transfer Diagnosis at time of Disposition: Lightheaded - Discharge Dispostion Disposition: HOME Condition at time of disposition: Stable Decision to Admit order: No - Referrals Referrals: Bing Hopson MD [Primary Care Provider] - - Patient Instructions Printed Discharge Instructions: DI for Dizziness-Nonvertigo Additional Instructions: Please drink plenty of fluids. Please eat regularly. Please follow up with your PMD in 2 days. Please return to the ED with any further concerns or complaints. - Post Discharge Activity - Attestations Physician Attestion: 11/28/18 01:15 I, Dr. Dixie Rangel, DO, attest that this document has been prepared under my direction and personally reviewed by me in its entirety. I further attest, that it accurately reflects all work, treatment, procedures and medical decision -making performed by me.
== END 2018-11-28 01:20 | disposition home or self-care (01) ==
LOC: JER 22:26
PROC: 3E033GC Introduction of Other Therapeutic Substance into Peripheral Vein, Percutaneous Approach (ICD-10-PCS; principal; 2018-11-27)
DX: R42 Dizziness and giddiness (principal)
CPT/HCPCS: 36415; 80053; 81003; 84703; 85025; 99282-25; J7030